=== PATIENT | female | born 1965 | race Caucasian/White ===

== ENCOUNTER 2017-09-29 06:34 | Day surgery (SDC) | payer OTHER ==
[2017-09-29] MEDS: Lactated Ringers 1,000 ML IV SCH (07:18)
[2017-09-29] MEDS ORDERED: Propofol 200 MG/20 ML SDV IV ONE (08:20)
[2017-09-29] MEDS ORDERED: Midazolam 1 MG/ML 2 ML SDV IV ONE (08:20)
[2017-09-29] MEDS ORDERED: Lactated Ringers 1,000 ML IV ONE (08:20)
--- NOTE | 2017-09-29 08:21 | PCM.HPR ---
H & P Addendum review - H & P Addendum Review Date of Original H & P: 09/23/17 Date Reviewed: 09/29/17 Time Reviewed: 08:05 Patient was Examined: No Changes
--- NOTE | 2017-09-29 09:12 | PCM.OPNOTE ---
- General Post-Op/Procedure Note Date of Surgery/Procedure: 09/29/17 Operative Procedure(s): EGD and Colonoscopy Findings: Both Normal Pre Op Diagnosis: Dysphasia, Colon Screening Post-Op Diagnosis: Same Anesthesia Technique: MAC Primary Surgeon: Anthony Jolley Complications: None Condition: Good
[2017-09-29] MEDS ORDERED: Lactated Ringers 1,000 ML IV SCH (12:20)
--- NOTE | 2017-09-29 15:31 | OR ---
DATE OF OPERATION: 09/29/2017 SURGEON: Anthony Jolley MD PREOPERATIVE DIAGNOSES: 1. Dysphagia. 2. Colon screening. POSTOPERATIVE DIAGNOSES: 1. Normal EGD. 2. Colonoscopy. PROCEDURES: 1. EGD. 2. Colonoscopy. ANESTHESIA: IV sedation. DESCRIPTION OF PROCEDURE: The patient was brought to the procedure room, where IV sedation was administered. Oral bite block was placed, and the upper endoscope was advanced into the esophagus under direct vision without difficulty. Vocal cords were viewed and were normal. The scope was advanced to the third portion of the duodenum. The duodenum and pylorus were normal. Antrum and body of the stomach were normal. Retroflexion reveals a normal- appearing fundus. There was no hiatal hernia. The squamocolumnar junction appears normal. There was no stricture, inflammation, or other abnormalities present. Air was removed from the stomach, and the scope withdrawn through the remaining esophagus, which all appears normal. Next, colonoscopy was performed, after digital rectal exam was performed, which was normal. The colonoscope was inserted and advanced to the level of the cecum with some difficulty getting through a tortuous colon, requiring pressure on the abdomen. Cecal position was confirmed by identifying the appendiceal lumen and ileocecal valve. Prep was good and surfaces were well visualized. Upon withdrawing the scope, the ascending, transverse, and descending colon were normal in appearance. The sigmoid colon and rectum were normal. Retroflexion was normal. Air was removed, and the scope withdrawn. The patient tolerated the procedure well and returned to Recovery in a stable condition. Recommend routine colon screening in 10 years. The patient is scheduled for pH and manometry testings in the near future for further evaluation of her dysphagia. /[id number] MICHAEL/PHIL
== END 2017-09-29 10:26 | disposition home or self-care (01) ==
LOC: FB.SDS 06:34
PROVIDERS: ATTEND Surgery
DX: Z12.11 Encounter for screening for malignant neoplasm of colon (principal); R13.10 Dysphagia, unspecified; K63.89 Other specified diseases of intestine; F41.9 Anxiety disorder, unspecified; F32.9 Major depressive disorder, single episode, unspecified; F50.2 Bulimia nervosa; Z68.1 Body mass index [BMI] 19.9 or less, adult; Z79.899 Other long term (current) drug therapy; Z88.0 Allergy status to penicillin
CPT/HCPCS: 81025; J2250; J2704; J7120